=== PATIENT | female | born 1985 | race Two or more races ===

== ENCOUNTER → 2020-03-30 | Outpatient (CLI) | payer OTHER | END | disposition home or self-care (01) | LOC: PRENATAL 15:30 | PROVIDERS: ATTEND Obstetrics & Gynecology | DX: O99.89 Other specified diseases and conditions complicating pregnancy, childbirth and the puerperium (principal); O35.3 Maternal care for (suspected) damage to fetus from viral disease in mother; Z3A.20 20 weeks gestation of pregnancy ==